=== PATIENT | female | born 1985 | race American Indian/Alaskan Native ===

== ENCOUNTER 2016-08-22 18:25 | Emergency (ER) | payer SELFPAY ==
[2016-08-22 21:50] LABS: Anion Gap 19 mmol/L; Blood Urea Nitrogen 11 mg/dL (7-17); Calcium 9.2 mg/dL (8.4-10.2); Carbon Dioxide 22 mmol/L (22-30); Chloride 95.5 mmol/L (98-107); Glucose 97 mg/dL (65-100); Potassium 3.9 mmol/L (3.6-5.0); Sodium 133 mmol/L (137-145)
[2016-08-22 21:52] LABS: Mean Corpuscular HGB Conc 27 % (30-34); Platelet Count 526 K/mm3 (140-440); Red Blood Count 4.54 M/mm3 (3.65-5.03)
[2016-08-22 21:55] LABS: Hematocrit 23.6 % (30.3-42.9); Hemoglobin 6.5 gm/dl (10.1-14.3); Mean Corpuscular Hemoglobin 14 pg (28-32); Mean Corpuscular Volume 52 fl (79-97)
[2016-08-22 23:01] LABS: Basophils % (Manual) 0 % (0.0-1.8); Blastocytes % (Manual) 0 %
[2016-08-22 23:02] LABS: Anisocytosis 2+; Microcytosis 3+; Poikilocytosis 1+
[2016-08-22 23:03] LABS: Giant Platelets Few; Hypochromasia 3+; Large Platelets Few; Platelet Estimate Appears Increased; Polychromasia Few
[2016-08-22 23:04] LABS: Diff Status Complete
--- NOTE | 2016-08-23 04:01 | Emergency Department Report ---
ED Chest Pain HPI - General Chief Complaint: Chest Pain Stated Complaint: CP/TIGHTNESS Time Seen by Provider: 08/23/16 03:56 Source: patient Mode of arrival: Ambulatory Limitations: No Limitations - History of Present Illness Initial Comments: This is a pleasant 31-year-old female who reports chest wall pain for the last 2 weeks. She describes as being in the left upper chest wall region. It is somewhat worse worse with movement of her left arm. She states it causes discomfort when she is at work and doing activities at work. She denies any difficulty with breathing. She does report occasional fatigue. She is wondering if her blood levels are low again as she has had iron deficiency anemia in the past. She states she has not been on iron for the past 2 years. She denies weight change. States that she try to follow the diet in general. Any drugs of abuse does not smoke. Severity scale (0 -10): 5 Quality: sharp Improves With: movement Worsens With: nothing - Related Data Previous Rx's Medication Instructions Recorded Last Taken Type Iron,Carbonyl/Ascorbic Acid [Iron 2 each PO DAILY #60 tablet 08/23/16 Unknown Rx 100-Vitamin C Tablet] Allergies Allergy/AdvReac Type Severity Reaction Status Date / Time No Known Allergies Allergy Verified 08/22/16 19:36 GINO score - Gino Score Age > 65: (0) No Aspirin use within the Past 7 Days: (0) No 3 or more CAD Risk Factors: (0) No 2 or more Angina events in past 24 hrs: (0) No Known CAD with more than 50% Stenosis: (0) No Elevated Cardiac Markers: (0) No ST Deviation Greater than 0.5mm: (0) No GINO Score: 0 ED Review of Systems ROS: Stated complaint: CP/TIGHTNESS Other details as noted in HPI Comment: All other systems reviewed and negative Constitutional: other (fatigue). denies: chills, fever Eyes: denies: eye pain, eye discharge, vision change ENT: denies: ear pain, throat pain Respiratory: denies: cough, shortness of breath, wheezing Cardiovascular: chest pain. denies: palpitations Endocrine: no symptoms reported Gastrointestinal: denies: abdominal pain, nausea, diarrhea Genitourinary: denies: urgency, dysuria, discharge Musculoskeletal: denies: back pain, joint swelling, arthralgia Skin: denies: rash, lesions Neurological: denies: headache, weakness, paresthesias Psychiatric: denies: anxiety, depression Hematological/Lymphatic: denies: easy bleeding, easy bruising ED Past Medical Hx - Past Medical History Previous Medical History?: Yes Additional medical history: ANEMIA - Surgical History Past Surgical History?: No - Social History Smoking Status: Never Smoker Substance Use Type: Alcohol - Medications Home Medications: Home Medications Medication Instructions Recorded Confirmed Last Taken Type Iron,Carbonyl/Ascorbic Acid [Iron 2 each PO DAILY #60 tablet 08/23/16 Unknown Rx 100-Vitamin C Tablet] ED Physical Exam - General Limitations: No Limitations General appearance: alert, in no apparent distress - Head Head exam: Present: atraumatic, normocephalic - Eye Eye exam: Present: normal appearance, EOMI. Absent: scleral icterus - ENT ENT exam: Present: normal exam, normal orophraynx, mucous membranes moist - Neck Neck exam: Present: normal inspection. Absent: meningismus, lymphadenopathy - Respiratory Respiratory exam: Present: normal lung sounds bilaterally. Absent: respiratory distress, wheezes, rales - Cardiovascular Cardiovascular Exam: Present: regular rate, normal rhythm, other (chest wall tenderness over the left upper breast region. No fullness is noted in this region. Seems to be muscular in nature. Patient is noted along large breasted and pendulous.). Absent: systolic murmur, diastolic murmur, rubs, gallop - GI/Abdominal GI/Abdominal exam: Present: soft, normal bowel sounds. Absent: tenderness, guarding - Extremities Exam Extremities exam: Present: normal inspection. Absent: tenderness, pedal edema, calf tenderness - Back Exam Back exam: Present: normal inspection. Absent: tenderness, CVA tenderness (R) - Neurological Exam Neurological exam: Present: alert, oriented X3 - Psychiatric Psychiatric exam: Present: normal affect, normal mood - Skin Skin exam: Present: warm, dry, intact, normal color. Absent: rash ED Course Vital Signs 08/22/16 08/22/16 08/23/16 19:36 23:39 03:08 Temperature 98.9 F 98.3 F Pulse Rate 91 H 87 79 Respiratory 16 12 11 L Rate Blood Pressure 138/80 133/69 Blood Pressure [Left] O2 Sat by Pulse 100 100 Oximetry 08/23/16 08/23/16 08/23/16 03:10 03:17 04:29 Temperature 97.7 F Pulse Rate 71 85 Respiratory 19 Rate Blood Pressure 130/60 Blood Pressure 137/79 [Left] O2 Sat by Pulse 97 Oximetry - Reevaluation(s) Reevaluation #1: 08/23/16 03:56 ECG in 1923 with normal sinus rhythm at 85 bpm with a normal AL and QRS and normal axis. Normal ECG. Reevaluation #2: 08/23/16 20:13 Patient is well-appearing here and comfortable appearing. She has very represents an reproducible pain. I do not suspect cardiac etiology. She is unremarkable here. Labs did demonstrate significant anemia at hemoglobin 6.5. This is microcytic. I believe this is consistent with her history of iron deficiency anemia. I did strongly encourage patient to get back on iron as this will significantly help her fatigue that she has been suffering from. I did question whether she had her thyroid tested recently as well she indicates that she has. She is agreeable to reinitiating iron. I did encourage just conservative measures regarding her chest wall pain. I do have suspicion that her large breasts are likely contributing to pulling on her tissue on the chest wall causing some of the discomfort. Encouraged wearing supportive bra. She is agreeable with this plan as well and then returning if she has any concerns. ED Medical Decision Making - Lab Data Result diagrams: 08/22/16 21:11 08/22/16 21:11 Critical care attestation.: If time is entered above; I have spent that time in minutes in the direct care of this critically ill patient, excluding procedure time. ED Disposition Clinical Impression: Anterior chest wall pain Anemia Qualifiers: Anemia type: iron deficiency Iron deficiency anemia type: unspecified iron deficiency Qualified Code(s): D50.9 - Iron deficiency anemia, unspecified Disposition: DISCHARGED TO HOME OR SELFCARE Is pt being admited?: No Does the pt Need Aspirin: No Condition: Stable Instructions: Iron Rich Diet (ED), Iron Deficiency Anemia (ED) Additional Instructions: Take iron daily to help replenish her blood supply. Vitamin C helps you absorb iron. You may need a stool softener as iron can be constipating. Take ibuprofen or Naprosyn for your chest wall pains. Be cautious with strenuous activities. Follow a healthy diet as well as a healthy lifestyle and exercise program. Prescriptions: Iron,Carbonyl/Ascorbic Acid [Iron 100-Vitamin C Tablet] 2 each PO DAILY #60 tablet Referrals: [facility] [Provider Group] - 3-5 Days [facility] [Provider Group] - 3-5 Days Time of Disposition: 04:15
[2016-08-23 04:30] VITALS: BP 137/79
== END 2016-08-23 04:29 | disposition home or self-care (01) ==
LOC: ED 18:25
DX: R07.89 Other chest pain (principal); D50.9 Iron deficiency anemia, unspecified
CPT/HCPCS: 36415; 80048; 81025; 84484; 85007; 85025; 93005; 93010; 99284